=== PATIENT | male | born 1960 | race Caucasian/White ===

== ENCOUNTER 2022-10-31 08:55 | Inpatient (IN) | payer BC, SELFPAY ==
[2022-10-31] VITALS (47 sets, daily range): BP systolic 106–149; BP diastolic 72–88; PULSE 90–125; RESP 15–24; TEMP 36.7–36.8; O2SAT 85–97; BMI 31.2
--- NOTE | 2022-10-31 09:06 | ECG_ITS ---
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
[2022-10-31 09:28] LABS: Glucometer 116 mg/dL (74-106)
--- NOTE | 2022-10-31 09:29 | ED_ITS ---
HPI - General Adult General Chief complaint: Weakness Stated complaint: KIDNEY PAIN-SENT OVER BY MEEK Time Seen by Provider: 10/31/22 09:06 Source: patient Mode of arrival: walk-in Limitations: no limitations History of Present Illness HPI narrative: The patient's PCP, Margaret Hurst, called me to discuss this patient's case. He came to the office this morning complaining of 3 weeks of weakness/fatigue, decreased appetite and decreased PO intake. He was diaphoretic and HR was 132 in the office. He has chronic right hipm pain and complained of right flank pain for the last 2 weeks. No vomiting but he has nausea. Normal BMs. No abdominal pain. Urine has been dark but no difficulty urinating. No cough, fever, chest pain or tightness or shortness of breath. PMHx - NIDDM, gout Labs mid August were unremarkable including normal LFTs and normal renal function Related Data Home Medications Medication Instructions Recorded Confirmed No Known Home Medications 10/31/22 10/31/22 Allergies Allergy/AdvReac Type Severity Reaction Status Date / Time No Known Drug Allergies Allergy Verified 10/31/22 09:09 [facility] Medical History (Updated 10/31/22 @ 14:08 by Lily Rashid) Social History Smoking status: Never smoker Exam Narrative Exam Narrative: Nurses notes and vital signs reviewed and patient is not hypoxic. afebrile General: Well-appearing and in no apparent distress. Skin: Diaphoretic, no pallor noted. No rash. Head: Normocephalic, atraumatic. Eye: Pupils are equal, round and EOMI. No scleral icterus. Ears, Nose, Mouth, and Throat: Oral mucosa is moist Cardiovascular: Tachycardia. Respiratory: No accessory muscle use or respiratory distress. Lungs are clear to auscultation, no wheezing, rales or rhonchi Back: No midline thoracic or lumbar vertebral tenderness. No CVA tenderness Musculoskeletal: normal ROM, no calf or popliteal tenderness, no lower extremity edema/swelling GI: Abdomen is soft, non-distended. Normal bowel sounds. No masses appreciated. No tenderness to palpation. No rebound, guarding, or rigidity noted. Neurological: A&O x4. No cranial nerve dysfunction observed. No truncal ataxia. Moves all extremities. Sensation intact. Psychiatric: Cooperative and interactive. Normal mood and affect. Constitutional Vital Signs, click to edit/add: Last Vital Signs Temp 98.2 F 10/31/22 13:47 Pulse 101 H 10/31/22 13:47 Resp 18 10/31/22 13:47 BP 149/88 H 10/31/22 13:47 Pulse Ox 91 L 10/31/22 14:45 O2 Del Method Room Air 10/31/22 14:45 O2 Flow Rate 2 10/31/22 13:47 Course Vital Signs Vital signs: Vital Signs Temperature 98.1 F 10/31/22 09:09 Pulse Rate 111 H 10/31/22 09:09 Respiratory Rate 24 10/31/22 09:09 Blood Pressure 131/84 H 10/31/22 09:09 Pulse Oximetry 96 10/31/22 09:09 Temperature 98.2 F 10/31/22 13:47 Pulse Rate 101 H 10/31/22 13:47 Respiratory Rate 18 10/31/22 13:47 Blood Pressure 149/88 H 10/31/22 13:47 Pulse Oximetry 91 L 10/31/22 14:45 Oxygen Delivery Method Room Air 10/31/22 14:45 Oxygen Delivery Flow Rate 2 10/31/22 13:47 Medical Decision Making MDM Narrative Medical decision making narrative: Patient was placed on air sampling and monitoring and EKG obtained. urine ordered to be obtained and sent for testing. Blood drawn and sent for evaluation, including blood cultures and lactate presents protocol. portable chest x-ray obtained. The patient is also sent for CT scanning of the abdomen pelvis to further evaluate his right flank pain in light of this septic-like presentation. the patient was ordered to receive normal saline IV fluid bolus. He declined an offer for pain meds. Patient is septic with elevate WBC, elevated lactate. He was ordered to receive IV Zosyn. CXR negative. LFTs and Total Bilirubin elevated so he was sent for GB US. CT a/p revealed ascending colonic changes concerning for mass with liver metastases along with upper abdominal and right mid abdominal mesenteric LN changes. he also has changes consistent with cystitis. RUQ US and CTA Chest unremarkable for cholecysitis or PE. I talked with Dr Knight about the patient and he recommended treating the patient's sepsis and his colonic mass is not an urgent surgical matter at this time. Dr Husain and I discussed the patient's case and she agreed to admit the patient for further monitoring and testing. Patient informed of his results and is also agreeable to admission. Lab Data Lab results reviewed: Yes I reviewed the patient's lab results Labs: Lab Results 10/31/22 10/31/22 Range/Units 09:20 09:26 WBC 26.7 H (4.0-11.0) 10^3/uL RBC 5.63 (4.70-6.10) 10^6/uL Hgb 17.5 (14.0-18.0) g/dL Hct 50.7 (42.0-54.0) % MCV 90.1 (80.0-94.0) fL MCH 31.1 (25.9-34.0) pg MCHC 34.5 (29.9-35.2) g/dL RDW 15.0 (11.0-15.0) % Plt Count 365 (150-450) 10^3/uL MPV 11.2 (9.5-13.5) fL Seg Neuts % (Manual) 82.0 Band Neutrophils % 6.0 H (0-5) % Lymphocytes % (Manual) 9.0 L (20.5-60.0) % Monocytes % (Manual) 3.0 (1.7-12.0) % Eosinophils % (Manual) 0.0 L (0.9-7.0) % Basophils % (Manual) 0.0 L (0.2-2.0) % Neutrophils # (Manual) 21.89 H (1.4-6.5) 10^3/uL Band Neutrophils # 1.6 H (0.0-0.3) 10^3/uL Lymphocytes # (Manual) 2.40 (1.20-3.80) 10^3/uL Monocytes # (Manual) 0.80 (0.30-0.80) 10^3/uL Eosinophils # (Manual) 0.00 (0.00-0.70) 10^3/uL Basophils # (Manual) 0.00 (0.00-0.10) 10^3/uL Anisocytosis 1+ PT 15.6 H (9.0-11.6) sec INR 1.51 APTT 35.6 (22.3-36.2) sec D-Dimer 3.59 H* (<=0.59) mg/L FEU Sodium 131 L (136-145) mmol/L Potassium 4.8 (3.5-5.1) mmol/L Chloride 95 L (98-107) mmol/L Carbon Dioxide 17.0 L (21.0-32.0) mmol/L Anion Gap 23.8 BUN 25.0 H (7.0-18.0) mg/dL Creatinine 1.08 (0.70-1.30) mg/dL Est GFR ( Amer) >60 (>=60) Est GFR (Non-Af Amer) >60 (>=60) BUN/Creatinine Ratio 23.1 Glucose 116 H (74-106) mg/dL Lactate 6.5 H* (0.4-2.0) mmol/L Calcium 10.8 H (8.5-10.1) mg/dL Total Bilirubin 11.9 H (0.2-1.0) mg/dL Direct Bilirubin 9.4 H* (0.0-0.2) mg/dL AST 149 H (15-37) U/L ALT 89 H (16-63) U/L Alkaline Phosphatase 590 H (46-116) U/L Troponin I High Sens 16.2 (4.0-76.1) pg/mL NT-Pro-B Natriuret Pep 132.0 (<=900.0) pg/mL Total Protein 8.8 H (6.4-8.2) g/dL Albumin 2.8 L (3.4-5.0) g/dL Globulin 6.0 g/dL Albumin/Globulin Ratio 0.5 Lipase 130.0 (73.0-393.0) U/L TSH 1.938 (0.358-3.740) uIU/mL POC Glucose 116 H (74-106) mg/dL Imaging Data Chest x-ray: Radiologist's impression: Patient Name: JUAN CARNEY MRN: [id number] date: 1960 Sex: M Assigned Patient Location: ED.MAIN Current Patient Location: ED.MAIN Accession/Order Number: [id number] Exam Date: 10/31/2022 09:38 Report Date: 10/31/2022 09:55 At the request of: DESEAN MORAN Procedure: XR chest 1V EXAM: XR chest 1V HISTORY: . tachycardia . COMPARISON: None TECHNIQUE: Single view of the chest FINDINGS: Heart and vascularity are unremarkable. Lungs are free of focal infiltrates. There is calcified granuloma in the left midlung field. No acute bony abnormality is appreciated. IMPRESSION: No acute heart or lung disease identified. Electronically authenticated by: CHERYL SMITH Date: 10/31/2022 09:55 ct abd/pelvis: Radiologist's impression: Patient Name: JUAN CARNEY MRN: [id number] date: 1960 Sex: M Assigned Patient Location: ED.MAIN Current Patient Location: ER Accession/Order Number: [id number] Exam Date: 10/31/2022 09:30 Report Date: 10/31/2022 10:18 At the request of: DESEAN MORAN Procedure: CT abdomen pelvis wo con EXAMINATION: CT abdomen pelvis wo con, 10/31/2022 9:30 AM EDT HISTORY: right flank pain COMPARISON: None. TECHNIQUE: CT scan of the abdomen and pelvis was performed without IV contrast. Oral contrast was not administered prior to the examination. Sagittal and coronal reformats were created and saved to PACS. Dose reduction techniques were achieved by using automated exposure control and/or adjustment of mA and/or kV according to patient size and/or use of iterative reconstruction technique. FINDINGS: Noncontrasted nature of the exam limits evaluation of the vascular structures and solid organs. Lung Bases: No acute findings in the visualized lower chest. Atherosclerotic calcification of the coronary arteries. Liver: The liver is enlarged, with micronodular contour relating to cirrhosis, less likely pseudocirrhosis. There are numerous ill-defined hypoattenuating lesions throughout the hepatic parenchyma, suboptimally characterized without the use of IV contrast, but most concerning for extensive hepatic metastatic disease; example includes a 2.3 x 2.2 cm lesion in segment 8 (image 25 series 3). Biliary tree: Normal. Gallbladder: Contracted. No findings of acute cholecystitis. Spleen: Spleen is enlarged measuring approximately 15.6 cm in AP dimension. Pancreas: Mild parenchymal atrophy. No abnormal ductal dilatation. Adrenal glands: Normal. Kidneys and ureters: Normal. Bladder: Under distended, with apparent wall thickening at least in part relating to underdistention. Reproductive organs: Prostate is not significantly enlarged. Seminal vesicles are symmetric. Gastrointestinal tract: No abnormal bowel dilatation. Colonic diverticulosis without findings of acute diverticulitis. There is abnormal focal wall thickening of the distal ascending colon just proximal to the hepatic flexure (image 39 series 5), raising concern for mass noting findings partially related to underdistention. The appendix appears normal. Peritoneum/retroperitoneum: Trace free intraperitoneal fluid. No free intraperitoneal gas. Vasculature: Atherosclerosis without aneurysm. Lymph nodes: There are multiple abnormally enlarged likely metastatic upper abdominal and right mid abdominal mesenteric lymph nodes as exemplified by a 1.8 x 1.6 cm gastrohepatic node (image 53 series 3), a 3.9 x 3.6 cm aniket hepatic node (image 66 series 3), and a 1.4 x 1.4 cm right lower quadrant mesenteric node (image 103 series 3). There are several prominent nonspecific cardiophrenic nodes including a 1.1 x 1.0 cm node (image 20 series 3). Abdominal wall: Tiny fat-containing umbilical hernia. Fat-containing left inguinal hernia. Musculoskeletal: Degenerative change of the spine. There are numerous vague lucencies scattered throughout the visualized skeleton concerning for diffuse osseous metastatic disease. IMPRESSION: 1. Numerous hypoattenuating lesions scattered throughout the liver is most concerning for extensive hepatic metastatic disease, noting evaluation is limited without the use of IV contrast. Hepatomegaly, and contour nodularity suggests underlying cirrhosis; multiple lesions are favored less likely related to multifocal primary hepatic malignancy such as hepatocellular carcinoma. 2. There is abnormal focal ascending colonic wall thickening just proximal to the hepatic flexure raising concern for an underlying mass. 3. Multiple enlarged presumably metastatic right lower quadrant mesenteric and upper abdominal lymph nodes. There are several prominent nonspecific cardiophrenic nodes as well. 4. Numerous vague lucencies scattered throughout the visualized skeleton concerning for diffuse osseous metastatic disease. 5. Splenomegaly. Trace free intraperitoneal fluid. 6. Mild apparent bladder wall thickening at least in part relates to underdistention. Correlate with urinalysis if there is clinical concern for cystitis. Electronically authenticated by: AGNES MATSON Date: 10/31/2022 10:18 RUQ US: Radiologist's impression: Patient Name: JUAN CARNEY MRN: [id number] date: 1960 Sex: M Assigned Patient Location: ED.MAIN Current Patient Location: ER Accession/Order Number: [id number] Exam Date: 10/31/2022 11:15 Report Date: 10/31/2022 12:11 At the request of: DESEAN MORAN Procedure: US right upper quadrant PROCEDURE: US right upper quadrant, 10/31/2022 11:15 AM EDT CLINICAL INDICATIONS: Elevated bilirubin, anorexia, abdominal pain for one week, nausea, vomiting COMPARISON: CT abdomen and pelvis 10/31/2022 TECHNIQUE: Right upper quadrant abdominal sonogram FINDINGS: The visualized pancreas is normal in morphology without ductal dilatation. Portions of head and tail segments are obscured. Peripancreatic and hepatic hilar lymphadenopathy is seen. These measure up to; 1.9 x 1.4 x 2.0 cm and 4.4 x 2.8 x 3.[address] respectively[address] with CT assessment. Heterogeneous enlargement of the liver is seen. Right lobe 24 cm. Heterogeneous coarsened echotexture is noted. Discrete lesions are poorly demonstrated to correspond with CT findings. Visualized portal vein is patent with antegrade flow. Common bile duct 0.1 cm. There is mild gallbladder wall thickening. Calculus, localized pain is not evident. Right kidney is normal in morphology. Renal cortical thinning is present, right renal cortex 1.0 cm. It measures 12.6 x 5.8 x 6.2 cm. No hydronephrosis or shadowing calculus is identified. Focal renal abnormality is not demonstrated. No free fluid. IMPRESSION: 1. Hepatomegaly, mild lobular contour, heterogeneity. Discrete hepatic lesions seen on CT assessment are not resolved sonographically. There remain indeterminate for metastatic hepatic neoplastic process. 2. Peripancreatic and hepatic hilar lymphadenopathy 3. Contracted gallbladder with wall thickening. Incomplete distention favored. Acute or chronic cholecystitis not excluded. Calculus or localized pain is not evident. 4. Right renal cortical thinning, no hydronephrosis calculus or focal abnormality. Electronically authenticated by: ELMER BARLOW Date: 10/31/2022 12:11 CT scan - chest: Radiologist's impression: Patient Name: JUAN CARNEY MRN: [facility]:[id number] date: 1960 Sex: M Assigned Patient Location: ER Current Patient Location: ER Accession/Order Number: [id number] Exam Date: 10/31/2022 10:25 Report Date: 10/31/2022 12:25 At the request of: DESEAN MORAN Procedure: CT angio chest EXAM: CT angio chest HISTORY: tachycardia, elevated ddimer COMPARISON: None. TECHNIQUE: CT chest with intravenous contrast was performed with timing for the evaluation for pulmonary arteries. Multiplanar reformats were performed. MIP (maximum intensity projection) images or 3D post processing was performed. Dose reduction techniques were achieved by using automated exposure control and/or adjustment of mA and/or kV according to patient size and/or use of iterative reconstruction technique. FINDINGS: Lungs: No consolidation, mass, or effusion. There is right lower lobe linear atelectasis. Left upper lobe calcified granuloma. Airways: Normal. Mediastinum: There are subcentimeter AP window and paraesophageal and bilateral cardiophrenic angle lymph nodes. Aorta: No aneurysm. Cardiac: Normal size. No pericardial effusion. Pulmonary vasculature: Diagnostic opacification of pulmonary arteries without evidence of pulmonary embolus. Normal morphology. Bones: No acute bony abnormality. Axilla: No adenopathy. Thyroid gland: Right thyromegaly with 1 cm low-density, likely representing thyroid nodule. Correlation with thyroid function tests and thyroid ultrasound is recommended. Soft tissues: Unremarkable. Upper abdomen: Small hiatal hernia. Additional findings: None. IMPRESSION:No evidence of pulmonary embolus or acute intrathoracic abnormality. Right lower lobe linear atelectasis. Subcentimeter AP window and paraesophageal and bilateral cardiophrenic angle lymph nodes. Right thyromegaly with 1 cm low-density, likely representing thyroid nodule. Correlation with thyroid function tests and thyroid ultrasound is recommended. Electronically authenticated by: EKATERINA MATHEW Date: 10/31/2022 12:25 ECG Data Interpretation: EKG interpretation: Emergency Department physician interpretation. Sinus tachycardia at 123bpm. Left axis, non-specific ST changes. No ST segment elevation or depression. Discharge Plan Discharge Chief Complaint: Weakness Clinical Impression: Sepsis, Colonic mass, Metastatic cancer to liver Patient Disposition: Admitted As Inpatient Time of Disposition Decision: 10:36 Discharge Date/Time: 10/31/22 13:43
[2022-10-31 09:30] LABS: Hematocrit 50.7 % (42.0-54.0); Hemoglobin 17.5 g/dL (14.0-18.0); Mean Corpuscular HGB Conc 34.5 g/dL (29.9-35.2); Mean Corpuscular Hemoglobin 31.1 pg (25.9-34.0); Mean Corpuscular Volume 90.1 fL (80.0-94.0); Mean Platelet Volume 11.2 fL (9.5-13.5); Platelet Count 365 10^3/uL (150-450); Red Blood Count 5.63 10^6/uL (4.70-6.10); White Blood Count 26.7 10^3/uL (4.0-11.0)
--- NOTE | 2022-10-31 09:39 | CT_ITS ---
[address] [address] Patient Name: JUAN CARNEY MRN: [id number] date: 1960 Sex: M Assigned Patient Location: ED.MAIN Current Patient Location: Accession/Order Number: [id number] Exam Date: 10/31/2022 09:30 Report Date: 10/31/2022 10:18 At the request of: DESEAN MORAN Procedure: CT abdomen pelvis wo con EXAMINATION: CT abdomen pelvis wo con, 10/31/2022 9:30 AM EDT HISTORY: right flank pain COMPARISON: None. TECHNIQUE: CT scan of the abdomen and pelvis was performed without IV contrast. Oral contrast was not administered prior to the examination. Sagittal and coronal reformats were created and saved to PACS. Dose reduction techniques were achieved by using automated exposure control and/or adjustment of mA and/or kV according to patient size and/or use of iterative reconstruction technique. FINDINGS: Noncontrasted nature of the exam limits evaluation of the vascular structures and solid organs. Lung Bases: No acute findings in the visualized lower chest. Atherosclerotic calcification of the coronary arteries. Liver: The liver is enlarged, with micronodular contour relating to cirrhosis, less likely pseudocirrhosis. There are numerous ill-defined hypoattenuating lesions throughout the hepatic parenchyma, suboptimally characterized without the use of IV contrast, but most concerning for extensive hepatic metastatic disease; example includes a 2.3 x 2.2 cm lesion in segment 8 (image 25 series 3). Biliary tree: Normal. Gallbladder: Contracted. No findings of acute cholecystitis. Spleen: Spleen is enlarged measuring approximately 15.6 cm in AP dimension. Pancreas: Mild parenchymal atrophy. No abnormal ductal dilatation. Adrenal glands: Normal. Kidneys and ureters: Normal. Bladder: Under distended, with apparent wall thickening at least in part relating to underdistention. Reproductive organs: Prostate is not significantly enlarged. Seminal vesicles are symmetric. Gastrointestinal tract: No abnormal bowel dilatation. Colonic diverticulosis without findings of acute diverticulitis. There is abnormal focal wall thickening of the distal ascending colon just proximal to the hepatic flexure (image 39 series 5), raising concern for mass noting findings partially related to underdistention. The appendix appears normal. Peritoneum/retroperitoneum: Trace free intraperitoneal fluid. No free intraperitoneal gas. Vasculature: Atherosclerosis without aneurysm. Lymph nodes: There are multiple abnormally enlarged likely metastatic upper abdominal and right mid abdominal mesenteric lymph nodes as exemplified by a 1.8 x 1.6 cm gastrohepatic node (image 53 series 3), a 3.9 x 3.6 cm aniket hepatic node (image 66 series 3), and a 1.4 x 1.4 cm right lower quadrant mesenteric node (image 103 series 3). There are several prominent nonspecific cardiophrenic nodes including a 1.1 x 1.0 cm node (image 20 series 3). Abdominal wall: Tiny fat-containing umbilical hernia. Fat-containing left inguinal hernia. Musculoskeletal: Degenerative change of the spine. There are numerous vague lucencies scattered throughout the visualized skeleton concerning for diffuse osseous metastatic disease. CT/CT abdomen pelvis wo con IMPRESSION: 1. Numerous hypoattenuating lesions scattered throughout the liver is most concerning for extensive hepatic metastatic disease, noting evaluation is limited without the use of IV contrast. Hepatomegaly, and contour nodularity suggests underlying cirrhosis; multiple lesions are favored less likely related to multifocal primary hepatic malignancy such as hepatocellular carcinoma. 2. There is abnormal focal ascending colonic wall thickening just proximal to the hepatic flexure raising concern for an underlying mass. 3. Multiple enlarged presumably metastatic right lower quadrant mesenteric and upper abdominal lymph nodes. There are several prominent nonspecific cardiophrenic nodes as well. 4. Numerous vague lucencies scattered throughout the visualized skeleton concerning for diffuse osseous metastatic disease. 5. Splenomegaly. Trace free intraperitoneal fluid. 6. Mild apparent bladder wall thickening at least in part relates to underdistention. Correlate with urinalysis if there is clinical concern for cystitis. Electronically authenticated by: AGNES MATSON Date: 10/31/2022 10:18
[2022-10-31 09:42] LABS: Band Neutrophils Absolute 1.6 10^3/uL (0.0-0.3); Segmented Neut Absolute Manual 21.89 10^3/uL (1.4-6.5)
--- NOTE | 2022-10-31 09:42 | XR_ITS ---
The [address] [address] Patient Name: JUAN CARNEY MRN: [id number] date: 1960 Sex: M Assigned Patient Location: ED.MAIN Current Patient Location: ED.MAIN Accession/Order Number: [id number] Exam Date: 10/31/2022 09:38 Report Date: 10/31/2022 09:55 At the request of: DESEAN MORAN Procedure: XR chest 1V EXAM: XR chest 1V HISTORY: . tachycardia . COMPARISON: None TECHNIQUE: Single view of the chest FINDINGS: Heart and vascularity are unremarkable. Lungs are free of focal infiltrates. There is calcified granuloma in the left midlung field. No acute bony abnormality is appreciated. XR/XR chest 1V IMPRESSION: No acute heart or lung disease identified. Electronically authenticated by: CHERYL SMITH Date: 10/31/2022 09:55
[2022-10-31 09:43] LABS: Anisocytosis 1+
[2022-10-31 09:48] LABS: D Dimer 3.59 mg/L FEU (<=0.59)
[2022-10-31] MEDS: 0.9 % SODIUM CHLORIDE 1,000 ML 999 ML IV (09:51)
[2022-10-31 09:54] LABS: Alanine Aminotransferase 89 U/L (16-63); Albumin Globulin Ratio 0.5; Albumin Level 2.8 g/dL (3.4-5.0); Alkaline Phosphatase 590 U/L (46-116); Anion Gap 23.8; Aspartate Amino Transferase 149 U/L (15-37); BUN Creatinine Ratio 23.1; Bilirubin Total 11.9 mg/dL (0.2-1.0); Calcium 10.8 mg/dL (8.5-10.1); Chloride 95 mmol/L (98-107); Estimated GFR (African America >60 (>=60); Estimated GFR (Non-African Ame >60 (>=60); Glucose 116 mg/dL (74-106); Potassium 4.8 mmol/L (3.5-5.1); Sodium 131 mmol/L (136-145); Thyroid Stimulating Hormone 1.938 uIU/mL (0.358-3.740); Total Protein 8.8 g/dL (6.4-8.2); Troponin I High Sensitivity 16.2 pg/mL (4.0-76.1)
[2022-10-31 09:57] LABS: Lactate/Lactic Acid 6.5 mmol/L (0.4-2.0)
--- NOTE | 2022-10-31 10:15 | US_ITS ---
The [address] [address] Patient Name: JUAN CARNEY MRN: [id number] date: 1960 Sex: M Assigned Patient Location: ED.MAIN Current Patient Location: ER Accession/Order Number: [id number] Exam Date: 10/31/2022 11:15 Report Date: 10/31/2022 12:11 At the request of: DESEAN MORAN Procedure: US right upper quadrant PROCEDURE: US right upper quadrant, 10/31/2022 11:15 AM EDT CLINICAL INDICATIONS: Elevated bilirubin, anorexia, abdominal pain for one week, nausea, vomiting COMPARISON: CT abdomen and pelvis 10/31/2022 TECHNIQUE: Right upper quadrant abdominal sonogram FINDINGS: The visualized pancreas is normal in morphology without ductal dilatation. Portions of head and tail segments are obscured. Peripancreatic and hepatic hilar lymphadenopathy is seen. These measure up to; 1.9 x 1.4 x 2.0 cm and 4.4 x 2.8 x 3.[address] respectively[address] with CT assessment. Heterogeneous enlargement of the liver is seen. Right lobe 24 cm. Heterogeneous coarsened echotexture is noted. Discrete lesions are poorly demonstrated to correspond with CT findings. Visualized portal vein is patent with antegrade flow. Common bile duct 0.1 cm. There is mild gallbladder wall thickening. Calculus, localized pain is not evident. Right kidney is normal in morphology. Renal cortical thinning is present, right renal cortex 1.0 cm. It measures 12.6 x 5.8 x 6.2 cm. No hydronephrosis or shadowing calculus is identified. Focal renal abnormality is not demonstrated. No free fluid. US/US right upper quadrant IMPRESSION: 1. Hepatomegaly, mild lobular contour, heterogeneity. Discrete hepatic lesions seen on CT assessment are not resolved sonographically. There remain indeterminate for metastatic hepatic neoplastic process. 2. Peripancreatic and hepatic hilar lymphadenopathy 3. Contracted gallbladder with wall thickening. Incomplete distention favored. Acute or chronic cholecystitis not excluded. Calculus or localized pain is not evident. 4. Right renal cortical thinning, no hydronephrosis calculus or focal abnormality. Electronically authenticated by: ELMER BARLOW Date: 10/31/2022 12:11
--- NOTE | 2022-10-31 10:35 | CT_ITS ---
[address] [address] Patient Name: JUAN CARNEY MRN: [id number] date: 1960 Sex: M Assigned Patient Location: ER Current Patient Location: Accession/Order Number: [id number] Exam Date: 10/31/2022 10:25 Report Date: 10/31/2022 12:25 At the request of: DESEAN MORAN Procedure: CT angio chest EXAM: CT angio chest HISTORY: tachycardia, elevated ddimer COMPARISON: None. TECHNIQUE: CT chest with intravenous contrast was performed with timing for the evaluation for pulmonary arteries. Multiplanar reformats were performed. MIP (maximum intensity projection) images or 3D post processing was performed. Dose reduction techniques were achieved by using automated exposure control and/or adjustment of mA and/or kV according to patient size and/or use of iterative reconstruction technique. FINDINGS: Lungs: No consolidation, mass, or effusion. There is right lower lobe linear atelectasis. Left upper lobe calcified granuloma. Airways: Normal. Mediastinum: There are subcentimeter AP window and paraesophageal and bilateral cardiophrenic angle lymph nodes. Aorta: No aneurysm. Cardiac: Normal size. No pericardial effusion. Pulmonary vasculature: Diagnostic opacification of pulmonary arteries without evidence of pulmonary embolus. Normal morphology. Bones: No acute bony abnormality. Axilla: No adenopathy. Thyroid gland: Right thyromegaly with 1 cm low-density, likely representing thyroid nodule. Correlation with thyroid function tests and thyroid ultrasound is recommended. Soft tissues: Unremarkable. Upper abdomen: Small hiatal hernia. Additional findings: None. CT/CT angio chest IMPRESSION:No evidence of pulmonary embolus or acute intrathoracic abnormality. Right lower lobe linear atelectasis. Subcentimeter AP window and paraesophageal and bilateral cardiophrenic angle lymph nodes. Right thyromegaly with 1 cm low-density, likely representing thyroid nodule. Correlation with thyroid function tests and thyroid ultrasound is recommended. Electronically authenticated by: EKATERINA MATHEW Date: 10/31/2022 12:25
[2022-10-31] MEDS: PIPERACILLIN SODIUM/TAZOBACTAM 4.5 GM in 0.9 % SODIUM CHLORIDE 50 ML IV (10:55)
[2022-10-31 11:24] LABS: Bilirubin Direct 9.4 mg/dL (0.0-0.2)
[2022-10-31] MEDS: LEVOFLOXACIN IN DEXTROSE 5 % 750 MG/150 ML IV.SOLN 100 MG IV (11:57)
--- NOTE | 2022-10-31 12:52 | CA_ITS ---
Patient: JUAN CARNEY Exam Date: 10/31/2022 : 1960 Gender:M Ordering : BARBIE GUARDADO . Admission #: [id number] Family : LARS MCKOY Order #: [id number] CLICK HERE TO VIEW EXAM ECHOCARDIOGRAM REPORT PROCEDURE: CA ECHO DOPPLER COMPLETE INDICATIONS: Shortness of breath, sepsis COMPARISON: None. DESCRIPTION: COMPLETE ECHOCARDIOGRAM Real-time transthoracic echocardiography with 2D, M-mode, spectral and color flow Doppler performed. QUALITY: Technical quality was good. LEFT VENTRICLE: Normal chamber size. Normal left ventricular wall thickness. Hyperdynamic systolic function. LV EF: Hyperdynamic left ventricular ejection fraction, (75%). DIASTOLIC: Unable to assess diastolic function. ATRIAL SEPTUM: LEFT ATRIUM: Normal chamber size. RIGHT ATRIUM: Normal chamber size. RIGHT VENTRICLE: Normal chamber size. Normal right ventricular systolic function. TRICUSPID VALVE: Normal mobility and thickness. No stenosis with no regurgitation. MITRAL VALVE: Normal mobility and thickness. No evidence of mitral valve stenosis. There is no mitral annular calcification. No mitral regurgitation. AORTIC VALVE: Normal trileaflet appearance. No visible sclerosis. Normal leaflet mobility. No evidence of aortic valve stenosis. No aortic regurgitation. AORTIC ROOT: Normal diameter and appearance. PULMONIC VALVE: Normal thickness and mobility. No stenosis. No regurgitation. PERICARDIUM: Trivial pericardial effusion. IVC: Not well visualized. PLEURA: CONCLUSION: 1. Hyperdynamic left ventricular systolic function. LVEF is 75%. 2. Normal right ventricular size and systolic function. 3. No significant valvular dysfunction. 4. Trivial pericardial effusion. Adult Echocardiography Procedure Report Left Ventricle LVEDD (3.7 - 5.6 cm): 5.39 cm LVESD (2.2 - 4.0 cm): 3.17 cm LVIVS thickness (0.6 - 1.2 cm): 1.13 cm LVPW thickness (0.5 - 1.0 cm): 0.95 cm e': 0.11 m/s E - e': 4.74 LVOT Max Gradient: 4.22 mm[Hg] LVOT Area (cm2): 1.03 m/s Peak Velocity (LVOT): 1.03 m/s LVOT Diameter 2.56 cm Left Atrium LA Volume Index (2D A2C): 23.60 ml/m2 Left Atrium Systolic Dimension: 3.75 cm Mitral Valve MV E to A Ratio: 0.83, 0.55 Mitral Valve A-Wave Peak Velocity: 0.72 m/s Mitral Valve E-Wave Peak Velocity: 0.50 m/s Right Ventricle Aorta AO Root Diam: 3.90 cm Aortic Valve AoV Area (Peak Hay): 3.19 cm2, 3.19 cm2 Peak Velocity(Antegrade Flow): 1.65 m/s Peak Gradient(Antegrade Flow): 10.93 mm[Hg] Tricuspid Valve Pulmonic Valve Peak Velocity: 1.12 m/s Peak Gradient: 5.15 mm[Hg], 4.88 mm[Hg] Right Atrium Dictated by: Monroe Haque M.D. on 11/02/2022 at 16:57 Approved by: Monroe Haque M.D. on 11/02/2022 at 16:59
[2022-10-31] MEDS: HYDROMORPHONE HCL 2 MG/ML VIAL 1 MG IV (13:13)
[2022-10-31] MEDS: ONDANSETRON PF 4 MG/2 ML VIAL IV (13:13)
[2022-10-31 13:20] LABS: INR 1.51; Partial Thromboplastin Time 35.6 sec (22.3-36.2); Prothrombin Time 15.6 sec (9.0-11.6)
[2022-10-31 14:10] LABS: Lactate/Lactic Acid 4.7 mmol/L (0.4-2.0)
[2022-10-31] MEDS: LACTATED RINGER'S SOLUTION 1,000 ML 200 ML IV (14:29)
[2022-10-31] MEDS: PANTOPRAZOLE SODIUM 40 MG VIAL IV (14:30)
[2022-10-31] MEDS: VANCOMYCIN HCL 1,250 MG in 0.9 % SODIUM CHLORIDE 250 ML 250 MG IV (15:37)
[2022-10-31 16:06] LABS: Bilirubin Urine MODERATE (NEGATIVE); Blood Urine NEGATIVE (NEGATIVE); Clarity Urine CLEAR (CLEAR); Color Urine DK. ORANGE (YELLOW); Glucose Urine UA NEGATIVE (NEGATIVE); Ketones Urine NEGATIVE (NEGATIVE); Leukocyte Esterase Urine NEGATIVE (NEGATIVE); Nitrite Urine NEGATIVE (NEGATIVE); Protein Urine NEGATIVE (NEG/TRACE)
[2022-10-31 16:08] LABS: Urine Microscopic Indicated NO
--- NOTE | 2022-10-31 17:06 | MR_ITS ---
[address] [address] Patient Name: JUAN CARNEY MRN: [id number] date: 1960 Sex: M Assigned Patient Location: ICU Current Patient Location: ICU Accession/Order Number: [id number] Exam Date: 10/31/2022 10:17 Report Date: 11/01/2022 15:35 At the request of: BARBIE GUARDADO Procedure: MR abdomen wo con EXAM: MR abdomen wo con CLINICAL INFORMATION: 62 years Male. MRCP, elevated liver enzymes, GB, liver lesions TECHNIQUE: Multiple coronal and two 15 degree coronal oblique single shot heavily T2 weighted images. Coronal heavily weighted 3D T2 weighted images. Axial in and out of phase, axial diffusion, axial T2 and thin section axial T2 weighted images of the pancreas. Axial T1 gradient echo images before gadolinium administration. COMPARISON: CT of the abdomen from 10/31/2022 FINDINGS: LIVER: The liver is nodular in contour. Hepatomegaly. Innumerable T2 hyperintense lesions are seen throughout the liver, highly suspicious for metastasis or less likely multifocal HCC or cholangiocarcinoma. However, evaluation of the lesions are limited due to lack of intravenous contrast. Liver protocol MRI with and without contrast (multiphasic, including diffusion weighted images) is recommended for better evaluation. No hepatic steatosis. No intrahepatic biliary dilation. GALLBLADDER: Contracted gallbladder. COMMON BILE DUCT: Normal. PANCREAS: Normal signal intensity. No evidence of stranding or increased T2 signal surrounding the pancreas.. No pancreatic ductal dilation. OTHER: Spleen, adrenal glands, and kidneys are unremarkable. Visualized bowel demonstrates no evidence of obstruction or inflammation. Small ascites. There are peripancreatic, periportal, perisplenic and periaortic lymphadenopathy, measuring up to 1.4 cm in short axis dimension, representing metastasis. Vascular structures are unremarkable. Extensive thoracic vertebral T2 hyperintense diffusion restricting lesions, representing bone metastasis. MR/MR abdomen wo con IMPRESSION: Hepatomegaly with nodular contour. Innumerable T2 hyperintense lesions are seen throughout the liver, highly suspicious for metastasis or less likely multifocal HCC or cholangiocarcinoma. However, evaluation of the lesions are limited due to lack of intravenous contrast. Liver protocol MRI with and without contrast (multiphasic, including diffusion weighted images) or tissue sampling is recommended for better evaluation. No intrahepatic or extrahepatic biliary dilation. Small ascites. There are peripancreatic, periportal, perisplenic and periaortic lymphadenopathy, measuring up to 1.4 cm in short axis dimension, representing metastasis. Extensive thoracic vertebral T2 hyperintense diffusion restricting lesions, representing bone metastasis. Electronically authenticated by: EKATERINA MATHEW Date: 11/01/2022 15:35
--- NOTE | 2022-10-31 17:34 | P.HP_ITS ---
H&P: HPI History of Present Illness Chief complaint: SEPSIS Narrative: patient is a 62-year-old male with past medical history of type 2 diabetes on metformin, with no other medical issues. He reports that he doesn't go to the doctor very often and most recently had been having some hip pain on the left and went to see his PCP for some other issues today. He was sent from his PCPs office to the Emergency Room because of his sweating and the way he felt. After speaking with patient and his significant other at bedside he reports a 27 pound weight loss over the last two months that he also reports she's been watching his carbohydrates. He has been having some night sweats some dark urine with limited urine output and he is felt feverish at times. He went through a several day sign of vomiting which stopped that he constantly has some nausea. He denies any abdominal pain but states that he has limited bowel movements every other to two days apart. He also notes that his stools have been dark tarry looking. He denies any prior colonoscopies any other abnormalities in his blood work in the past on wellness exams. He stopped taking all medications proximally two weeks ago when he also stopped drinking because of his nausea. Up until two weeks ago he drank about 4-5 beers a day over the last eight years since detention. At the time of admission exam he describes some nausea and some sweats but otherwise no other complaints. Review of Systems ROS Narrative twelve point review of systems were reviewed with the patient all negative unless stated in history of chief complaint [facility] Medical History (Updated 10/31/22 @ 17:55 by Ladonna Husain DO) Social History Smoking status: Never smoker Meds Home Medications and Allergies Home Medications Medication Instructions Recorded Confirmed Type No Known Home Medications 10/31/22 10/31/22 History Allergies Allergy/AdvReac Type Severity Reaction Status Date / Time No Known Drug Allergies Allergy Verified 10/31/22 09:09 Exam Narrative Exam Narrative: General: Patient is alert, and oriented to person, place and time with normal affect, proper hygiene Skin: no visible rashes, or ulcers Head: atraumatic, acephalic Eyes: PERRLA, no nystagmus present, scleral icterus bilaterally Ears: normal Tympanic Membrane, normal gross auditory acuity Nose: symmetric, no discharge, no maxillary or frontal sinus tenderness Mouth/Throat: no erythema, exudate, or tonsillar enlargement, normal dentition Neck: no masses palpated, normal thyroid, no JVD or audible carotid bruits Heart: Normal rate and rhythm, no murmurs/rubs/gallops Lungs: no audible wheezes, crackles and normal breath sounds all lung naidu Abdomen: Normal audible bowel sounds, no distension, No palpable masses, no organomegaly, no rebound/guarding/ or rigidity Musculoskeletal: muscle atrophy noted, ROM is limited due to being in hospital bed, no swelling bilateral lower extremities Vascular: Normal carotid, radial, femoral, posterior tibial, and dorsalis pedis pulses Lymph: no supraclavicular, axillary, or anterior/posterior cervical adenopathy Neuro: CN II-X grossly intact, normal sensation upper and lower extremities Constitutional Vital Signs, click to edit/add: Last Vital Signs Temp 98.2 F 10/31/22 13:47 Pulse 118 H 10/31/22 16:00 Resp 18 10/31/22 13:47 BP 149/88 H 10/31/22 13:47 Pulse Ox 91 L 10/31/22 14:45 O2 Del Method Room Air 10/31/22 14:45 O2 Flow Rate 2 10/31/22 13:47 Results Labs Labs: Short CBC 10/31/22 Range/Units 09:20 WBC 26.7 H (4.0-11.0) 10^3/uL Hgb 17.5 (14.0-18.0) g/dL Hct 50.7 (42.0-54.0) % Plt Count 365 (150-450) 10^3/uL BMP 10/31/22 09:20 Sodium 131 L Potassium 4.8 Chloride 95 L Carbon Dioxide 17.0 L BUN 25.0 H Creatinine 1.08 Glucose 116 H Calcium 10.8 H Liver Function 10/31/22 Range/Units 09:20 Total Bilirubin 11.9 H (0.2-1.0) mg/dL Direct Bilirubin 9.4 H* (0.0-0.2) mg/dL AST 149 H (15-37) U/L ALT 89 H (16-63) U/L Alkaline Phosphatase 590 H (46-116) U/L Albumin 2.8 L (3.4-5.0) g/dL Urine 10/31/22 Range/Units 15:55 Urine Color Dk. orange (YELLOW) Urine Clarity Clear (CLEAR) Urine pH 5.0 (5.0-9.0) Ur Specific [place] 1.020 (1.005-1.025) Urine Protein Negative (NEG/TRACE) mg/dL Urine Glucose (UA) Negative (NEGATIVE) mg/dL Assessment and Plan Assessment and Plan (1) Acute infective cystitis: Assessment and Plan: awaiting urine cultures and blood cultures, but due to sepsis with elevated lactic acid tachycardia elevated white blood cell count patient was placed on Vanco mycin, Levaquin, Zosyn. We'll de-escalate antibiotics as cultures result. Rapid IV fluid bolus and hydration. Currently with LR at two hundred, Cade catheter placed for strict I's and O's and for Specimen (2) Sepsis: Assessment and Plan: most likely secondary to #1 continue IV fluid hydration, monitoring lactic acid and broad-spectrum antibiotics, patient is currently ICU and on telemetry. (3) Metastatic cancer to liver: Assessment and Plan: discussed CT findings with patient and girlfriend present, CT of abdomen and pelvis show concern for metastatic disease possible hepatocellular carcinoma the liver with multiple lesions will get an MRCP in the morning patient will be nothing by mouth after midnight for this. Elevated liver enzymes and bilirubin levels, patient currently jaundice concern for advanced disease. Consultation for oncology (4) Colonic mass: Assessment and Plan: mass of the descending colon with thickening seen on CT abdomen and pelvis concern for mass patient denies ever having a preventative colonoscopy. No family history of colon cancer but has had some bowel changes over the last months. We'll get MRCP but we'll also consult general surgery for this issue but most likely will involve outpatient colonoscopy with biopsy. (5) Metastasis to bone: Assessment and Plan: pain control uncertain of primary lytic lesions seen on scan (6) Thyroid nodule: Assessment and Plan: incidental finding of CTA of the chest outpatient follow-up (7) Cirrhosis: Assessment and Plan: patient has quit drinking and would encourage him to stop no presence of ascites but patient is jaundice. (8) Acute cholecystitis: Assessment and Plan: MRCP in the morning consult general surgery (9) Type 2 diabetes mellitus: Assessment and Plan: monitor sugars, sliding scale insulin Plan patient is a full code Lovenox for deep vein thrombosis prophylaxis inpatient status and is expected to stay more than two midnights
[2022-10-31] MEDS: ENOXAPARIN SODIUM 40 MG/0.4 ML SYRINGE SUBQ (18:09)
[2022-10-31 19:52] LABS: Lactate/Lactic Acid 4.4 mmol/L (0.4-2.0)
[2022-10-31] MEDS: PIPERACILLIN SODIUM/TAZOBACTAM 3.375 GM in 0.9 % SODIUM CHLORIDE 50 ML IV (20:45)
[2022-11-01] VITALS (40 sets, daily range): BP systolic 121–125; BP diastolic 77–82; PULSE 72–111; RESP 7–25; TEMP 36.7–37; O2SAT 92–95; BMI 31.1
[2022-11-01] MEDS: LACTATED RINGER'S SOLUTION 1,000 ML 200 ML IV ×2 (00:09→05:39)
[2022-11-01 00:42] LABS: Bilirubin Urine LARGE (NEGATIVE); Blood Urine MODERATE (NEGATIVE); Clarity Urine CLEAR (CLEAR); Glucose Urine UA 100 mg/dL (NEGATIVE); Ketones Urine TRACE mg/dL (NEGATIVE); Leukocyte Esterase Urine NEGATIVE (NEGATIVE); Nitrite Urine POSITIVE (NEGATIVE); Protein Urine 30 mg/dL (NEG/TRACE); Specific Gravity Urine >=1.030 (1.005-1.025)
[2022-11-01 00:44] LABS: Color Urine DK ORANGE (YELLOW)
[2022-11-01 00:55] LABS: Amorphous Sediment Urine MANY; Bacteria Urine LARGE #/HPF (NONE SEEN); Cast Seen? NONE SEEN #/LPF (NONE SEEN); Crystals Seen? Seen #/HPF (None Seen); Mucus Urine LARGE (NONE SEEN); RBC Urine 0-2 #/HPF (0-2); Squamous Epithelial Cell Urine NONE SEEN #/LPF (NONE/RARE); Urine Culture Indicated YES; WBC Urine NONE SEEN #/HPF (NONE SEEN)
[2022-11-01] MEDS: VANCOMYCIN HCL 1,250 MG in 0.9 % SODIUM CHLORIDE 250 ML 250 MG IV ×2 (02:46→15:44)
[2022-11-01 04:07] LABS: Basophils Absolute Auto 0.1 10^3/uL (0.0-0.1); Basophils Percent Auto 0.4 % (0.2-2.0); Eosinophils Absolute Auto 0.1 10^3/uL (0.0-0.7); Eosinophils Percent Auto 0.5 % (0.9-7.0); Hematocrit 44.9 % (42.0-54.0); Hemoglobin 15.2 g/dL (14.0-18.0); Immature Granulocytes Abs Auto 0.39 10^3/uL (0.00-0.03); Immature Granulocytes Pct Auto 1.8 % (0.0-0.5); Lymphocytes Absolute Auto 1.1 10^3/uL (1.2-3.8); Mean Corpuscular HGB Conc 33.9 g/dL (29.9-35.2); Mean Corpuscular Hemoglobin 30.8 pg (25.9-34.0); Mean Corpuscular Volume 91.1 fL (80.0-94.0); Mean Platelet Volume 11.5 fL (9.5-13.5); Monocytes Absolute Auto 1.8 10^3/uL (0.3-0.8); Neutrophils Absolute Auto 18.7 10^3/uL (1.4-6.5); Neutrophils Percent Auto 84.3 % (43.0-75.0); Platelet Count 260 10^3/uL (150-450); Red Blood Count 4.93 10^6/uL (4.70-6.10); Red Cell Distribution Width 15.4 % (11.0-15.0); White Blood Count 22.2 10^3/uL (4.0-11.0)
[2022-11-01 04:14] LABS: CEA 5.3 ng/mL (0.0-4.7)
[2022-11-01 04:33] LABS: Alanine Aminotransferase 76 U/L (16-63); Albumin Globulin Ratio 0.5; Albumin Level 2.3 g/dL (3.4-5.0); Alkaline Phosphatase 444 U/L (46-116); Anion Gap 16.6; Aspartate Amino Transferase 121 U/L (15-37); BUN Creatinine Ratio 31.3; Bilirubin Total 10.5 mg/dL (0.2-1.0); C Reactive Protein 14.2 mg/dL (<=1.0); Calcium 10.2 mg/dL (8.5-10.1); Chloride 97 mmol/L (98-107); Estimated GFR (African America >60 (>=60); Estimated GFR (Non-African Ame >60 (>=60); Globulin 4.9 g/dL; Glucose 100 mg/dL (74-106); Magnesium 2.5 mg/dL (1.8-2.4); Potassium 4.6 mmol/L (3.5-5.1); Sodium 129 mmol/L (136-145); Total Protein 7.2 g/dL (6.4-8.2)
[2022-11-01] MEDS: PIPERACILLIN SODIUM/TAZOBACTAM 3.375 GM in 0.9 % SODIUM CHLORIDE 50 ML IV ×3 (05:39→18:13)
--- NOTE | 2022-11-01 08:26 | P.PN_ITS ---
Progress Note: Subjective Subjective Interval history: patient is a 62-year-old male with past medical history of type 2 diabetes on metformin, with no other medical issues. He reports that he doesn't go to the doctor very often and most recently had been having some hip pain on the left and went to see his PCP for some other issues today. He was sent from his PCPs office to the Emergency Room because of his sweating and the way he felt. After speaking with patient and his significant other at bedside he reports a 27 pound weight loss over the last two months that he also reports she's been watching his carbohydrates. He has been having some night sweats some dark urine with limited urine output and he is felt feverish at times. He went through a several day sign of vomiting which stopped that he constantly has some nausea. He denies any abdominal pain but states that he has limited bowel m ovements every other to two days apart. He also notes that his stools have been dark tarry looking. He denies any prior colonoscopies any other abnormalities in his blood work in the past on wellness exams. He stopped taking all medications proximally two weeks ago when he also stopped drinking because of his nausea. Up until two weeks ago he drank about 4-5 beers a day over the last eight years [facility]. Today patient denies any new complaints he just had his MRCP and would like to eat lunch. Exam Narrative Exam Narrative: General: Patient is alert, and oriented to person, place and time with normal affect, proper hygiene Skin: no visible rashes, or ulcers Head: atraumatic, acephalic Eyes: PERRLA, no nystagmus present, scleral icterus bilaterally Ears: normal Tympanic Membrane, normal gross auditory acuity Nose: symmetric, no discharge, no maxillary or frontal sinus tenderness Mouth/Throat: no erythema, exudate, or tonsillar enlargement, normal dentition Neck: no masses palpated, normal thyroid, no JVD or audible carotid bruits Heart: Normal rate and rhythm, no murmurs/rubs/gallops Lungs: no audible wheezes, crackles and normal breath sounds all lung naidu Abdomen: Normal audible bowel sounds, no distension, No palpable masses, no organomegaly, no rebound/guarding/ or rigidity Musculoskeletal: muscle atrophy noted, ROM is limited due to being in hospital bed, no swelling bilateral lower extremities Vascular: Normal carotid, radial, femoral, posterior tibial, and dorsalis pedis pulses Lymph: no supraclavicular, axillary, or anterior/posterior cervical adenopathy Neuro: CN II-X grossly intact, normal sensation upper and lower extremities Constitutional Vital Signs, click to edit/add: Last Vital Signs Temp 98.2 F 11/01/22 08:00 Pulse 74 11/01/22 08:00 Resp 16 11/01/22 08:00 BP 125/77 H 11/01/22 03:46 Pulse Ox 94 L 11/01/22 06:00 O2 Del Method Room Air 11/01/22 08:00 O2 Flow Rate 2 10/31/22 13:47 Progress Note: Objective Labs Labs: Short CBC 10/31/22 11/01/22 Range/Units 09:20 03:38 WBC 26.7 H 22.2 H (4.0-11.0) 10^3/uL Hgb 17.5 15.2 (14.0-18.0) g/dL Hct 50.7 44.9 (42.0-54.0) % Plt Count 365 260 (150-450) 10^3/uL BMP 10/31/22 11/01/22 09:20 03:38 Sodium 131 L 129 L Potassium 4.8 4.6 Chloride 95 L 97 L Carbon Dioxide 17.0 L 20.0 L BUN 25.0 H 31.0 H Creatinine 1.08 0.99 Glucose 116 H 100 Calcium 10.8 H 10.2 H Liver Function 10/31/22 11/01/22 Range/Units 09:20 03:38 Total Bilirubin 11.9 H 10.5 H (0.2-1.0) mg/dL Direct Bilirubin 9.4 H* (0.0-0.2) mg/dL AST 149 H 121 H (15-37) U/L ALT 89 H 76 H (16-63) U/L Alkaline Phosphatase 590 H 444 H (46-116) U/L Albumin 2.8 L 2.3 L (3.4-5.0) g/dL Urine 10/31/22 10/31/22 Range/Units 00:00 15:55 Urine Color Dk orange A Dk. orange (YELLOW) Urine Clarity Clear Clear (CLEAR) Urine pH 5.0 5.0 (5.0-9.0) Ur Specific [place] >=1.030 A 1.020 (1.005-1.025) Urine Protein 30 A Negative (NEG/TRACE) mg/dL Urine Glucose (UA) 100 A Negative (NEGATIVE) mg/dL Progress Note: A&P Assessment and Plan (1) Acute infective cystitis: (2) Sepsis: (3) Metastatic cancer to liver: (4) Colonic mass: (5) Metastasis to bone: (6) Thyroid nodule: (7) Cirrhosis: (8) Acute cholecystitis: (9) Type 2 diabetes mellitus: Plan (1) Acute infective cystitis: ?Assessment and Plan: awaiting urine cultures and blood cultures, but due to sepsis with elevated lactic acid tachycardia elevated white blood cell count patient was placed on Vancomycin, Levaquin, Zosyn. We'll de-escalate antibiotics as cultures result. Rapid IV fluid bolus and hydration. Currently with LR at two hundred decreased rate to 100, Cade catheter placed for strict I's and O's and for Specimen collection (2) Sepsis: ?Assessment and Plan: most likely secondary to #1 continue IV fluid hydration, monitoring lactic acid and broad-spectrum antibiotics, patient is currently ICU and on telemetry. (3) Metastatic cancer to liver: ?Assessment and Plan: discussed CT findings with patient and girlfriend present, CT of abdomen and pelvis show concern for metastatic disease possible hepatocellular carcinoma the liver with multiple lesions, MRCP today, awaiting results. Elevated liver enzymes and bilirubin levels, patient currently jaundice concern for advanced disease. Consultation for oncology, uncertain primary disease, elevated CEA (4) Colonic mass: ?Assessment and Plan: mass of the descending colon with thickening seen on CT abdomen and pelvis alexandre rn for mass patient denies ever having a preventative colonoscopy. No family history of colon cancer but has had some bowel changes over the last months. We'll get MRCP but we'll also consult general surgery for this issue but most likely will involve outpatient colonoscopy with biopsy. (5) Metastasis to bone: ?Assessment and Plan: pain control uncertain of primary, lytic lesions seen on scan (6) Thyroid nodule: ?Assessment and Plan: incidental finding of CTA of the chest outpatient follow-up (7) Cirrhosis: ?Assessment and Plan: patient has quit drinking and would encourage him to stop no presence of ascites but patient is jaundice. (8) Acute cholecystitis: ?Assessment and Plan: MRCP in the morning consult general surgery if needed (9) Type 2 diabetes mellitus: ?Assessment and Plan: monitor sugars, sliding scale insulin Plan patient is a full code Lovenox for deep vein thrombosis prophylaxis ?inpatient status and is expected to stay more than two midnights
[2022-11-01] MEDS: LACTATED RINGER'S SOLUTION 1,000 ML 100 ML IV (09:31)
[2022-11-01] MEDS: LEVOFLOXACIN IN DEXTROSE 5 % 500 MG/100 ML PIGGYBACK 100 MG IV (12:39)
--- NOTE | 2022-11-01 13:02 | CM.NOTE ---
Rounds made with Dr. Husain, oncology will see pt today. Pt had MRI this AM. No discharge today.
[2022-11-01] MEDS: PANTOPRAZOLE SODIUM 40 MG VIAL IV (13:06)
--- NOTE | 2022-11-01 13:41 | DIETREC ---
Recommend Ensure 1 container p o daily
--- NOTE | 2022-11-01 14:14 | PM.CN ---
Consult Note: HPI Data of Consult Patient: new to practice (Earnest Swain) Consult date: 11/01/22 Requesting Physician: Ladonna Husain DO Primary Care Provider: Margaret Hurst Consult Narrative Reason for consult: liver masses, colon abnormality, concern for stage IV malignancy Narrative: 62 y/o male, who notes limited past medical history and no prior screening colonoscopy, whom we are asked to see for liver masses, colon abnormality, concern for stage IV malignancy. He notes pmh of diabetes on metformin, with no other medical issues. He reports that he doesn't go to the doctor very often and most recently had been having some hip pain on the left and went to see his PCP for some other issues today. He was sent from his PCPs office to the Emergency Room because of his sweating and the way he felt. After speaking with patient and his significant other at bedside he reports a 20+ pound weight loss over the last two months that he also reports she's been watching his carbohydrates. He has been having some night sweats some dark urine with limited urine output and he is felt feverish at times. He went through several day of vomiting which stopped but also notes nausea. He does report a vague abdominal R sided discomfort, limited bowel movements every other to two days apart. He also notes that his stools have been dark tarry looking. He denies any prior abnormalities in his blood work in the past on wellness exams. He stopped taking all medications two weeks ago when he also stopped drinking because of his nausea. Up until two weeks ago he drank about 4-5 beers a day over the last eight years since long-term. At the time of admission exam he describes some nausea and some sweats but otherwise no other complaints. His work-up has consisted of CT abdomen pelvis without contrast. It shows numerous lesions throughout the liver, most concerning for extensive metastatic disease. Hepatomegaly and contour raises concern for cirrhosis as well. There is abnormal focal ascending colon wall thickening just proximal to the hepatic flexure raising concern for underlying mass. Multiple enlarged mesenteric R lower quadrant mesenteric and upper abdominal LN. Numerous vague lucencies throughout the skeleton, raising concern for bone mets. US of the RUQ shows hepatomegaly, with discrete liver lesions. Peripancreatic and hepatic hilar LAD. Acute on chronic cholecystitis not excluded. CT angio chest showed no evidence for PE. Subcentimeter AP window and paraesophageal and bilateral costophrenic angle LN. Right thyromegaly with 1 cm low density thyroid nodule. Review of his labs show elevated bilirubin > 10. He did complete MRCP today. General surgery has been consulted, Dr Knight. Per d/w Dr Husain, there is some consideration for transfer, such that he can be evaluated by hepatobiliary team / IR for stent vs. perc drain. At the bedside, pt notes some R sided abd discomfort. He wishes to remain aggressive with treatment options. He denies any FH of malignancy. He denies tobacco use. He does admit to ETOH, stopped 2 weeks ago, due to nausea. ECOG PS 2-3. cc:: CC: Ladonna Husain, DO Review of Systems ROS Narrative A 12 point review of systems was conducted and is negative other than that reported in the history of present illness [facility] Medical History Social History Smoking status: Never smoker Meds Home Medications and Allergies Home Medications Medication Instructions Recorded Confirmed Type metformin 500 mg tablet 500 mg PO DAILY 11/01/22 11/01/22 History Allergies Allergy/AdvReac Type Severity Reaction Status Date / Time No Known Drug Allergies Allergy Verified 10/31/22 09:09 Exam Narrative Exam Narrative: Exam Narrative: General: Patient is alert, and oriented to person, place and time with normal affect, proper hygiene Skin: no visible rashes, or ulcers Head: atraumatic, acephalic Eyes: PERRLA, no nystagmus present, +scleral icterus bilaterally Ears: normal Tympanic Membrane, normal gross auditory acuity Nose: symmetric, no discharge, no maxillary or frontal sinus tenderness Mouth/Throat: no erythema, exudate, or tonsillar enlargement, normal dentition Neck: no masses palpated, normal thyroid, no JVD or audible carotid bruits Heart: Normal rate and rhythm, no murmurs/rubs/gallops Lungs: no audible wheezes, crackles and normal breath sounds all lung naidu Abdomen: Normal audible bowel sounds, no distension, No palpable masses, no organomegaly, no rebound/guarding/ or rigidity Musculoskeletal: muscle atrophy noted, ROM is limited due to being in hospital bed, no swelling bilateral lower extremities Vascular: Normal carotid, radial, femoral, posterior tibial, and dorsalis pedis pulses Lymph: no supraclavicular, axillary, or anterior/posterior cervical adenopathy Neuro: CN II-X grossly intact, normal sensation upper and lower extremities Constitutional Vital Signs, click to edit/add: Last Vital Signs Temp 98.2 F 11/01/22 12:00 Pulse 72 11/01/22 13:53 Resp 16 11/01/22 12:00 BP 125/77 H 11/01/22 12:00 Pulse Ox 95 11/01/22 13:53 O2 Del Method Room Air 11/01/22 12:00 O2 Flow Rate 2 11/01/22 12:00 Results Labs Labs: Short CBC 11/01/22 Range/Units 03:38 WBC 22.2 H (4.0-11.0) 10^3/uL Hgb 15.2 (14.0-18.0) g/dL Hct 44.9 (42.0-54.0) % Plt Count 260 (150-450) 10^3/uL BMP 11/01/22 03:38 Sodium 129 L Potassium 4.6 Chloride 97 L Carbon Dioxide 20.0 L BUN 31.0 H Creatinine 0.99 Glucose 100 Calcium 10.2 H Liver Function 11/01/22 Range/Units 03:38 Total Bilirubin 10.5 H (0.2-1.0) mg/dL AST 121 H (15-37) U/L ALT 76 H (16-63) U/L Alkaline Phosphatase 444 H (46-116) U/L Albumin 2.3 L (3.4-5.0) g/dL Urine 10/31/22 10/31/22 Range/Units 00:00 15:55 Urine Color Dk orange A Dk. orange (YELLOW) Urine Clarity Clear Clear (CLEAR) Urine pH 5.0 5.0 (5.0-9.0) Ur Specific [place] >=1.030 A 1.020 (1.005-1.025) Urine Protein 30 A Negative (NEG/TRACE) mg/dL Urine Glucose (UA) 100 A Negative (NEGATIVE) mg/dL Imaging CT scan - abdomen: My impression: I personally reviewed CT abdomen pelvis without contrast. It shows numerous lesions throughout the liver, most concerning for extensive metastatic disease. There is abnormal focal ascending colon wall thickening just proximal to the hepatic flexure raising concern for underlying mass. Assessment and Plan Assessment and Plan (1) Acute infective cystitis: Assessment and Plan: awaiting urine cultures and blood cultures, but due to sepsis with elevated lactic acid tachycardia elevated white blood cell count patient was placed on Vanco mycin, Levaquin, Zosyn. We'll de-escalate antibiotics as cultures result. Rapid IV fluid bolus and hydration. Currently with LR at two hundred, Cade catheter placed for strict I's and O's and for Specimen (2) Sepsis: Assessment and Plan: most likely secondary to #1 continue IV fluid hydration, monitoring lactic acid and broad-spectrum antibiotics, patient is currently ICU and on telemetry. (3) Metastatic cancer to liver: Assessment and Plan: discussed CT findings with patient and girlfriend present, CT of abdomen and pelvis show concern for metastatic disease possible hepatocellular carcinoma the liver with multiple lesions will get an MRCP in the morning patient will be nothing by mouth after midnight for this. Elevated liver enzymes and bilirubin levels, patient currently jaundice concern for advanced disease. Consultation for oncology (4) Colonic mass: Assessment and Plan: mass of the descending colon with thickening seen on CT abdomen and pelvis concern for mass patient denies ever having a preventative colonoscopy. No family history of colon cancer but has had some bowel changes over the last months. We'll get MRCP but we'll also consult general surgery for this issue but most likely will involve outpatient colonoscopy with biopsy. (5) Metastasis to bone: Assessment and Plan: pain control uncertain of primary lytic lesions seen on scan (6) Thyroid nodule: Assessment and Plan: incidental finding of CTA of the chest outpatient follow-up (7) Cirrhosis: Assessment and Plan: patient has quit drinking and would encourage him to stop no presence of ascites but patient is jaundice. (8) Acute cholecystitis: Assessment and Plan: MRCP in the morning consult general surgery (9) Type 2 diabetes mellitus: Assessment and Plan: monitor sugars, sliding scale insulin Plan 62 y/o male, who notes limited past medical history and no prior screening colonoscopy, whom we are asked to see for liver masses, colon abnormality, concern for stage IV malignancy. Impression: 1. Extensive liver lesions, worrisome for stage IV malignancy 2. Elevated LFTs with high bilirubin, raising concern for biliary obstruction 3. Abnormal focal ascending colon wall thickening just proximal to the hepatic flexure raising concern for underlying mass. This may be the primary tumor. 4. Question of lymphadenopathy and bone mets 5. Weight loss 6. Nausea and poor appetite 7. R sided abd pain 8. Abnormal urine color 9. Leukocytosis, suspected to be reactive PLAN: - imaging reviewed, including CT abdomen/pelvis, US RUQ, and CT chest. Imaging raises concern for stage IV colon cancer - primary issues at this time revolve around biliary obstruction and bili > 10. He needs urgent eval with hepatobiliary team / surgery and potentially IR. Obstruction may need to be relieved with stent, perc drain, vs biliary bypass - above is not able to be performed at [facility]. I discussed case with Dr Husain, who will assist in initiating transfer to [facility]. I am rounding at [facility] hospital for the week, and will coordinate care from Oncology. - he will ultimately require tissue diagnosis to confirm malignancy. I suspect IR guided core liver biopsy may help confirming stage IV disease - we would send NGS / molecular markers if malignancy confirmed - unfortunately, he does not appear to be a candidate for curative surgery. If his bili improves / normalizes, we can offer palliative / systemic chemotherapy or immunotherapy - i did provide pt with my direct number, and we will provide maximal supportive care for presumed stage IV malignancy Thank you for the consult. We will continue to follow pt here, and upon transfer. Jody Fox MD Hematology Oncology Face to face time: 70 mins
--- NOTE | 2022-11-01 16:03 | PM.DS1 ---
DS: Providers Provider Date of admission: 10/31/22 13:00 Primary care physician: Margaret Hurst Admitting clinician: Ladonna Husain Consults: 10/31/22 14:40 Consult to Oncology Routine Consulting Provider: Jody Fox 11/01/22 08:00 Consult to General Surgeon Routine Consulting Provider: Rafael Knight Attending physician on discharge: Ladonna Husain DS: Diagnosis Discharge Diagnosis (1) Acute infective cystitis: (2) Sepsis: (3) Metastatic cancer to liver: (4) Colonic mass: (5) Metastasis to bone: (6) Thyroid nodule: (7) Cirrhosis: (8) Acute cholecystitis: (9) Type 2 diabetes mellitus: DS: Summary Hospital Course Hospital Course: (1) Acute infective cystitis: ?Assessment and Plan: awaiting urine cultures and blood cultures, but due to sepsis with elevated lactic acid tachycardia elevated white blood cell count patient was placed on Vancomycin, Levaquin, Zosyn. We'll de-escalate antibiotics as cultures result. Rapid IV fluid bolus and hydration. Currently with LR at two hundred decreased rate to 100, Cade catheter placed for strict I's and O's and for Specimen collection (2) Sepsis: ?Assessment and Plan: most likely secondary to #1 continue IV fluid hydration, monitoring lactic acid and broad-spectrum antibiotics, patient is currently ICU and on telemetry. (3) Metastatic cancer to liver: ?Assessment and Plan: discussed CT findings with patient and girlfriend present, CT of abdomen and pelvis show concern for metastatic disease possible hepatocellular carcinoma the liver with multiple lesions, MRCP today, awaiting results. Elevated liver enzymes and bilirubin levels, patient currently jaundice concern for advanced disease. Consultation for oncology: uncertain primary disease, elevated CEA most likely colon cancer primary; Discussed case and patient status and both agree to transfer to higher level of care, MELD score 25 (4) Colonic mass: ?Assessment and Plan: mass of the descending colon with thickening seen on CT abdomen and pelvis concern for mass patient denies ever having a preventative colonoscopy. No family history of colon cancer but has had some bowel changes over the last months. We'll get MRCP but we'll also consult general surgery for this issue but most likely will involve outpatient colonoscopy with biopsy. (5) Metastasis to bone: ?Assessment and Plan: pain control uncertain of primary, lytic lesions seen on scan (6) Thyroid nodule: ?Assessment and Plan: incidental finding of CTA of the chest outpatient follow-up (7) Cirrhosis: ?Assessment and Plan: patient has quit drinking and would encourage him to stop no presence of ascites but patient is jaundice. (8) Acute cholecystitis: ?Assessment and Plan: MRCP in the morning consult general surgery if needed (9) Type 2 diabetes mellitus: ?Assessment and Plan: monitor sugars, sliding scale insulin Transfer to [facility], for highter level of care, Hepatology/GI, Oncology, colorectal surgery Time Spent with Patient Time attestation: Total time spent providing and/or coordinating discharge services: Exam Narrative Exam Narrative: no changes at the time of discharge to progress note dated 11/01/2022 Constitutional Vital Signs, click to edit/add: Last Vital Signs Temp 98.2 F 11/01/22 15:57 Pulse 72 11/01/22 15:57 Resp 16 11/01/22 15:57 BP 125/77 H 11/01/22 15:57 Pulse Ox 95 11/01/22 15:57 O2 Del Method Room Air 11/01/22 15:57 O2 Flow Rate 2 11/01/22 15:57 DS: Data Data Completed and Pending Labs on day of discharge: Labs from last 24 hours 11/01/22 10/31/22 10/31/22 03:38 19:08 15:55 WBC 22.2 H RBC 4.93 Hgb 15.2 Hct 44.9 MCV 91.1 MCH 30.8 MCHC 33.9 RDW 15.4 H Plt Count 260 MPV 11.5 Neut % (Auto) 84.3 H Lymph % (Auto) 5.0 L [place] % (Auto) 8.0 Eos % (Auto) 0.5 L Baso % (Auto) 0.4 Neut # (Auto) 18.7 H Lymph # (Auto) 1.1 L [place] # (Auto) 1.8 H Eos # (Auto) 0.1 Baso # (Auto) 0.1 Abs Immat Gran (auto) 0.39 H Imm/Tot Granulo (auto) 1.8 H Sodium 129 L Potassium 4.6 Chloride 97 L Carbon Dioxide 20.0 L Anion Gap 16.6 BUN 31.0 H Creatinine 0.99 Est GFR ( Amer) >60 Est GFR (Non-Af Amer) >60 BUN/Creatinine Ratio 31.3 Glucose 100 Lactate 4.4 H* Calcium 10.2 H Magnesium 2.5 H Total Bilirubin 10.5 H AST 121 H ALT 76 H Alkaline Phosphatase 444 H C-Reactive Protein 14.2 H Total Protein 7.2 Albumin 2.3 L Globulin 4.9 Albumin/Globulin Ratio 0.5 Carcinoembryonic Ag Urine Color Dk. orange Urine Clarity Clear Urine pH 5.0 Ur Specific [place] 1.020 Urine Protein Negative Urine Glucose (UA) Negative Urine Ketones Negative Urine Occult Blood Negative Urine Nitrite Negative Urine Bilirubin Moderate A Urine Urobilinogen 2.0 A Ur Leukocyte Esterase Negative Urine RBC Urine WBC Ur Squamous Epith Cells Urine Crystals Amorphous Sediment Urine Bacteria Urine Casts Urine Mucus Ur Culture Indicated? 10/31/22 10/31/22 09:20 00:00 WBC RBC Hgb Hct MCV MCH MCHC RDW Plt Count MPV Neut % (Auto) Lymph % (Auto) [place] % (Auto) Eos % (Auto) Baso % (Auto) Neut # (Auto) Lymph # (Auto) [place] # (Auto) Eos # (Auto) Baso # (Auto) Abs Immat Gran (auto) Imm/Tot Granulo (auto) Sodium Potassium Chloride Carbon Dioxide Anion Gap BUN Creatinine Est GFR ( Amer) Est GFR (Non-Af Amer) BUN/Creatinine Ratio Glucose Lactate Calcium Magnesium Total Bilirubin AST ALT Alkaline Phosphatase C-Reactive Protein Total Protein Albumin Globulin Albumin/Globulin Ratio Carcinoembryonic Ag 5.3 H Urine Color Dk orange A Urine Clarity Clear Urine pH 5.0 Ur Specific [place] >=1.030 A Urine Protein 30 A Urine Glucose (UA) 100 A Urine Ketones Trace A Urine Occult Blood Moderate A Urine Nitrite Positive A Urine Bilirubin Large A Urine Urobilinogen 4.0 A Ur Leukocyte Esterase Negative Urine RBC 0-2 Urine WBC None seen Ur Squamous Epith Cells None seen Urine Crystals Seen A Amorphous Sediment Many Urine Bacteria Large A Urine Casts None seen Urine Mucus Large A Ur Culture Indicated? Yes Discharge Plan Discharge Disposition: Xfer Acute Care Hospital Discharge location: Transfer to [facility]
[2022-11-01] MEDS: MORPHINE SULFATE 2 MG/ML SYRINGE 1 MG IV (18:13)
[2022-11-01] MEDS: ENOXAPARIN SODIUM 40 MG/0.4 ML SYRINGE SUBQ (18:13)
--- NOTE | 2022-11-01 19:46 | PC.NURSE ---
pt lung sounds clear throughout
[2022-11-02 05:07] LABS: HBsAg Screen Negative (Negative); HCV Ab Non Reactive (Non Reactive); Hep A Ab, IgM Negative (Negative); Hep B Core Ab, IgM Negative (Negative)
== END 2022-11-01 19:30 | disposition short-term general hospital (02) | DRG 872 ==
LOC: ER 13:06 → ICU 13:12
PROVIDERS: Surgery; Admitting Provider Family Medicine; Emergency Provider Emergency Medicine; PCP Nurse Practitioner; Visit Provider Family Medicine
DX: A41.9 Sepsis, unspecified organism (principal); N30.00 Acute cystitis without hematuria; K81.0 Acute cholecystitis; C79.51 Secondary malignant neoplasm of bone; C78.7 Secondary malignant neoplasm of liver and intrahepatic bile duct; K63.89 Other specified diseases of intestine; E11.9 Type 2 diabetes mellitus without complications; Z79.84 Long term (current) use of oral hypoglycemic drugs; K74.60 Unspecified cirrhosis of liver; E04.1 Nontoxic single thyroid nodule; R79.89 Other specified abnormal findings of blood chemistry; R63.4 Abnormal weight loss; Z68.31 Body mass index [BMI] 31.0-31.9, adult
CPT/HCPCS: 36415; 51702; 71045; 71275; 74176; 74181; 76705; 80053; 80074; 80202; 81001; 81003; 82248; 82378; 83605; 83690; 83735; 83880; 84443; 84484; 85007; 85025; 85378; 85610; 85730; 86140; 87040; 87086; 93005; 93306; 94761; 96365; 96366; 96367; 96368; 96372; 96375; 96376; 99285; J1170; J3370; Q9967